=== PATIENT | female | born 1970 | race Asian ===

== ENCOUNTER 2019-08-28 23:03 | Inpatient (IN) | payer OTHER, SELFPAY ==
[2019-08-28 23:19] VITALS: BP 103/65; PULSE 105; RESP 18; TEMP 38.2; O2SAT 98
[2019-08-29] VITALS (25 sets, daily range): BP systolic 86–113; BP diastolic 45–72; PULSE 62–86; RESP 14–24; TEMP 36.1–38.4; O2SAT 93–100; BMI 17.6
[2019-08-29 00:35] LABS: Add Manual Diff / Slide Review NO; Basophils Absolute Auto 0 /uL (0-100); Basophils Percent Auto 0.2 % (0-2); Eosinophils Absolute Auto 0 /uL (0-450); Eosinophils Percent Auto 0.2 % (2-4); Hematocrit 39.3 % (36-46); Hemoglobin 13.6 g/dL (12.0-16.0); Lymphocytes Absolute Auto 1500 /uL (1100-4500); Lymphocytes Percent Auto 14.8 % (25-40); Mean Corpuscular HGB Conc 34.6 % (30-36); Mean Corpuscular Hemoglobin 32.6 PG (26-34); Monocytes Absolute Auto 1300 /uL (0-900); Monocytes Percent Auto 12.3 % (3-14); Neutrophils Absolute Auto 7400 /uL (1500-7000); Neutrophils Percent Auto 72.5 % (50-75); Platelet Count 317 X10^3/uL (150-400); Red Blood Cell Count 4.18 X10^6/uL (4.0-5.2); White Blood Cell Count 10.2 X10^3/uL (4.5-11.0)
[2019-08-29 00:36] LABS: INR 1.1 (0.9-1.3); Prothrombin Time 12.5 SECONDS (10.1-12.7)
[2019-08-29 00:38] LABS: PTT Partial Thromboplastin Tim 33 SECONDS (26.4-36.2)
--- NOTE | 2019-08-29 01:05 | ED.DENTAL ---
HPI - Dental/Oral General Chief complaint: Dental/Oral Stated complaint: left facial swelling tooth problem Time Seen by Provider: 08/28/19 23:05 Source: patient Mode of arrival: Ambulatory Limitations: no limitations History of Present Illness HPI Narrative: 49-year-old female smoker with poor dental history presents with a few days of rapidly worsening left-sided facial pain and swelling which now involves her anterior neck. She is scheduled to see a dentist on Saturday. She has no difficulty breathing and is managing her secretions fine. She does state that it is hard to swallow so her appetite has been decreased. She has had fever and feels like her heart is racing. She feels a bit dizzy. She is otherwise healthy and free of complaint Related Data Allergies Allergy/AdvReac Type Severity Reaction Status Date / Time No Known Drug Allergies Allergy Verified 08/29/19 03:24 Review of Systems Constitutional Constitutional: Denies chills, Denies fatigue, Denies fever(s), Denies frequent falls, Denies lethargy and Denies weakness Eyes Eyes: Denies change in vision, Denies eye discharge, Denies irritation and Denies loss of vision ENT Ears, Nose, Mouth, and Throat: Denies change in voice, Denies dizziness, Reports neck mass, Reports neck pain, Denies sore throat and Denies throat swelling Cardiovascular Cardiovascular: Denies chest pain, Denies irregular heart rhythm, Denies lightheadedness, Denies palpitations, Denies dyspnea, Denies dyspnea on exertion and Denies orthopnea Respiratory Respiratory: Denies cough, Denies dyspnea, Denies dyspnea on exertion and Denies wheezing Gastrointestinal Gastrointestinal: Denies abdominal pain, Denies change in bowel habits, Denies diarrhea, Denies nausea and Denies vomiting Genitourinary Genitourinary: Denies hematuria, Denies flank pain, Denies urinary incontinence and Denies urinary urgency Musculoskeletal Musculoskeletal: Denies back pain, Denies muscle weakness, Reports neck pain, Denies numbness and Denies tingling Integumentary/Breasts Skin/Breast: Denies pruritus, Reports erythema, Denies rash, Reports skin pain and Denies wounds Neurologic Neurologic: Denies behavioral changes, Denies confusion, Denies dizziness, Denies frequent falls, Denies loss of vision, Denies numbness, Denies tingling and Denies weakness Psychiatric Psychiatric: Denies anxiety, Denies behavioral changes, Denies confusion, Denies depression, Denies homicidal ideation and Denies suicidal ideation Endocrine Endocrine: Denies fatigue, Denies flushing and Denies palpitations Hematologic/Lymphatic Hematologic/Lymphatic: Denies easy bruising Allergic/Immunologic Allergic/Immunologic: Denies urticaria, Denies throat swelling and Denies wheezing PFSH Social History Smoking Status: Current every day smoker Social History Smoking Status: Current every day smoker Exam Narrative Exam Narrative: GENERAL: [49] year old patient appears stated age. Well-nourished, well-developed patient, in mild distress. Patient managing her airway and secretions without difficulty HEAD: Atraumatic. Normocephalic. EYES: Pupils equal round and reactive. Extraocular motions intact. No scleral icterus. No injection or drainage. ENT: Nose without bleeding, purulent drainage. Poor dentition throughout, multiple dental caries, no obvious intraoral abscess or drainage NECK: Left anterior neck and mandible are notably red, swollen and tender. CARDIOVASCULAR: Regular rate and rhythm without murmurs, gallops, or rubs. RESPIRATORY: Clear to auscultation. Breath sounds equal bilaterally. No wheezes, rales, or rhonchi. GASTROINTESTINAL: Abdomen soft, non-tender, nondistended. EXTREMITIES: No edema or joint tenderness. BACK: Nontender without deformity or crepitance. No flank tenderness. NEURO: AOx3. SKIN: No rash or erythema of visible areas other than that which is stated above Initial Vital Signs Initial Vital Signs: Vital Signs Temperature 100.8 F H 08/28/19 23:19 Pulse Rate 105 H 08/28/19 23:19 Respiratory Rate 18 08/28/19 23:19 Blood Pressure 103/65 08/28/19 23:19 Pulse Oximetry 98 08/28/19 23:19 Course Orders Ordered: ED Orders 08/29/19 00:01 Complete Blood Count AUTO DIFF Stat Comprehensive Metabolic Panel Stat Lactate (Lactic Acid) Stat Lipase Stat Partial Thromboplastin Time Stat Procalcitonin Stat Prothrombin Time INR Stat 08/29/19 00:40 Blood Culture Stat 08/29/19 01:37 CT soft tissue neck w con Stat Ondansetron HCl (Zofran) 4 mg IV Q4HR PRN PRN Reason: Nausea And Vomiting Last Admin: 08/29/19 01:50 Dose: 4 mg Documented by: ARLEEN Discontinued Medications Dexamethasone (Decadron) 10 mg IV NOW ONE Stop: 08/29/19 01:38 Last Admin: 08/29/19 01:51 Dose: 10 mg Documented by: ARLEEN Sodium Chloride (Normal Saline 0.9%) 1,000 mls @ 1,000 mls/hr IV BOLUS ONE Stop: 08/29/19 01:17 Last Infusion: 08/29/19 03:08 Dose: 0 mls/hr Documented by: Admin: 08/29/19 01:50 Dose: 1,000 mls/hr Documented by: ARLEEN Sodium Chloride (Normal Saline 0.9%) 1,000 mls @ 1,000 mls/hr IV BOLUS ONE Stop: 08/29/19 02:36 Clindamycin Phosphate (Cleocin) 600 mg in 50 mls @ 50 mls/hr IV NOW ONE Stop: 08/29/19 02:37 Last Infusion: 08/29/19 02:57 Dose: 0 mls/hr Documented by: Admin: 08/29/19 02:00 Dose: 50 mls/hr Documented by: ARLEEN Ketorolac Tromethamine (Toradol) 15 mg IV NOW ONE Stop: 08/29/19 01:38 Last Admin: 08/29/19 01:50 Dose: 15 mg Documented by: ARLEEN Reevaluation(s) Reevaluation #1: Patient is feeling somewhat better with the above-stated therapies Consultations Consultation #1: Initial call to ENT, they state they are happy to address the abscess but recommends transfer to a facility with the ability to care for her dental problems as well as this is the likely source of her infection Consultation #2: call to Dr. Newell, he is happy to accept patient on his service. Will be in in a few hours with likely OR time. Keep NPO Vital Signs Vital signs: Vital Signs - 8 hr 08/28/19 23:19 08/29/19 00:00 08/29/19 01:30 Temperature 100.8 F H 101.1 F H Pulse Rate 105 H 76 80 Respiratory Rate 18 20 20 Blood Pressure 103/65 Blood Pressure [Left Arm] 105/68 108/66 Pulse Oximetry 98 97 98 08/29/19 03:07 Temperature 99 F Pulse Rate 70 Respiratory Rate 18 Blood Pressure Blood Pressure [Left Arm] 102/65 Pulse Oximetry 98 MDM - Dental/Oral Lab Data Result diagrams: 08/29/19 00:01 08/29/19 00:01 Labs: Lab Results 08/29/19 08/29/19 08/29/19 Range/Units 00:01 00:01 00:01 WBC 10.2 (4.5-11.0) X10^3/uL RBC 4.18 (4.0-5.2) X10^6/uL Hgb 13.6 (12.0-16.0) g/dL Hct 39.3 (36-46) % MCV 94.0 (80-100) fL MCH 32.6 (26-34) PG MCHC 34.6 (30-36) % RDW 13.0 (11.6-14.8) % Plt Count 317 (150-400) X10^3/uL Neut % (Auto) 72.5 (50-75) % Lymph % (Auto) 14.8 L (25-40) % [place] % (Auto) 12.3 (3-14) % Eos % (Auto) 0.2 L (2-4) % Baso % (Auto) 0.2 (0-2) % Neut # (Auto) 7400 H (1849-0308) /uL Lymph # (Auto) 1500 (2586-3827) /uL [place] # (Auto) 1300 H (0-900) /uL Eos # (Auto) 0 (0-450) /uL Baso # (Auto) 0 (0-100) /uL PT 12.5 (10.1-12.7) SECONDS INR 1.1 (0.9-1.3) APTT 33 (26.4-36.2) SECONDS Sodium (137-145) mmol/L Potassium (3.4-5.1) mmol/L Chloride (98-107) mmol/L Carbon Dioxide (22-32) mmol/L BUN (7-17) mg/dL Creatinine (0.52-1.04) mg/dL Estimated GFR (>60) mL/min BUN/Creatinine Ratio (6-22) Glucose (70-100) mg/dL Lactate (0.7-2.1) mmol/L Calcium (8.4-10.2) mg/dL Total Bilirubin (0.2-1.3) mg/dL AST (14-36) IU/L ALT (9-52) IU/L Alkaline Phosphatase (38-126) U/L Total Protein (6.3-8.2) g/dL Albumin (3.5-5.0) g/dL Globulin (1.7-4.1) g/dL Albumin/Globulin Ratio (1.0-2.8) Lipase (23-300) U/L Procalcitonin 0.20 (<0.5) ng/mL 08/29/19 08/29/19 Range/Units 00:01 00:01 WBC (4.5-11.0) X10^3/uL RBC (4.0-5.2) X10^6/uL Hgb (12.0-16.0) g/dL Hct (36-46) % MCV (80-100) fL MCH (26-34) PG MCHC (30-36) % RDW (11.6-14.8) % Plt Count (150-400) X10^3/uL Neut % (Auto) (50-75) % Lymph % (Auto) (25-40) % [place] % (Auto) (3-14) % Eos % (Auto) (2-4) % Baso % (Auto) (0-2) % Neut # (Auto) (7108-8174) /uL Lymph # (Auto) (1710-7796) /uL [place] # (Auto) (0-900) /uL Eos # (Auto) (0-450) /uL Baso # (Auto) (0-100) /uL PT (10.1-12.7) SECONDS INR (0.9-1.3) APTT (26.4-36.2) SECONDS Sodium 136 L (137-145) mmol/L Potassium 3.4 (3.4-5.1) mmol/L Chloride 96 L (98-107) mmol/L Carbon Dioxide 30 (22-32) mmol/L BUN 8 (7-17) mg/dL Creatinine 0.60 (0.52-1.04) mg/dL Estimated GFR > 60.0 (>60) mL/min BUN/Creatinine Ratio 13.3 (6-22) Glucose 130 H (70-100) mg/dL Lactate 0.6 L (0.7-2.1) mmol/L Calcium 9.1 (8.4-10.2) mg/dL Total Bilirubin 0.6 (0.2-1.3) mg/dL AST 17 (14-36) IU/L ALT 9 (9-52) IU/L Alkaline Phosphatase 71 (38-126) U/L Total Protein 7.6 (6.3-8.2) g/dL Albumin 4.0 (3.5-5.0) g/dL Globulin 3.6 (1.7-4.1) g/dL Albumin/Globulin Ratio 1.1 (1.0-2.8) Lipase 26 (23-300) U/L Procalcitonin (<0.5) ng/mL Discharge Plan Departure Admit Date/Time: 08/29/19 03:37 Admit Provider: Kirill Newell
--- NOTE | 2019-08-29 01:37 | DI.CT.S_ITS ---
PROCEDURE: CT SOFT TISSUE NECK W CON INDICATIONS: large swollen, tender mass anterior neck TECHNIQUE: After the administration of intravenous contrast, 3.0 mm axial sections acquired from the sella to the aortic arch. Additional oblique axial 3.0 mm sections acquired through the pharynx. 3 mm thick coronal and sagittal reformats were generated. For radiation dose reduction, the following was used: automated exposure control. COMPARISON: None. FINDINGS: Image quality: Excellent. Lymph nodes: There are a few enhancing mild prominent left cervical lymph nodes including a level II node measuring up to 0.8 cm in short axis. A few prominent subcentimeter submandibular lymph nodes are also noted. Findings are likely reactive. Vessels: Visualized vasculature appears patent. Neck spaces: There is asymmetric soft tissue swelling and subcutaneous edema involving the left oral cavity, and left aviation technical systems specialist space, and left submandibular region. Within this region, there is a lobulated multiloculated peripheral enhancing fluid collection measuring approximately 2.8 x 2.8 since in maximum transverse dimension and 3.6 cm in craniocaudal extent. This tracks along the posterior left mandible with a small cortical erosion demonstrated medially adjacent to the root of the left 2nd mandibular molar. There is a lucency around the root of the 2nd molar as well as erosive changes of the tooth. The constellation of findings are compatible with a periosteal abscess along the mandible likely secondary to an odontogenic cavity and infection of the root of the 2nd molar. There is asymmetric soft tissue swelling of the left base of tongue and mild narrowing of the left oropharynx. The nasopharynx, and pharynx demonstrate no mucosal lesions. The vocal cords, false vocal cords, pyriform sinuses, epiglottis, and vallecula appear to normal limits. Glands: The parotid and submandibular glands appear normal. Thyroid gland demonstrates no discrete nodules. Miscellaneous: Visualized brain and orbits appear normal. The visualized lung apices demonstrate mild subpleural scarring in the right upper lobe. Bones: No suspicious bony lesions. Visualized sinuses and mastoids appear unremarkable. IMPRESSION: 1. Multiloculated periosteal abscess tracking along the posterior left mandible with an associated erosion of the medial mandible. Given the associated erosive changes of the tooth and lucency at the base of the left 2nd mandibular molar, the findings are likely odontogenic in origin secondary to a cavity with an infection at the root of the 2nd molar. 2. Associated left-sided soft tissue swelling involving the oral cavity, submandibular region, and aviation technical systems specialist space are suggestive of cellulitis. 3. Mildly prominent sub-centimeter left cervical lymph nodes are likely reactive. Dictated by: Akira Torres M.D. on 08/29/2019 at 7:06 Approved by: Akira Torres M.D. on 08/29/2019 at 7:23
[2019-08-29] MEDS: ONDANSETRON 4 MG/2 ML INJ IV (01:50)
[2019-08-29] MEDS: SODIUM CHLORIDE 0.9% 1,000 ML 1000 ML IV ×2 (01:50→04:08)
[2019-08-29] MEDS: KETOROLAC 60 MG/2 ML VIAL 15 MG IV (01:50)
[2019-08-29] MEDS: DEXAMETHASONE 10 MG/ML VIAL IV (01:51)
[2019-08-29 01:52] LABS: Lactate (Lactic Acid) 0.6 mmol/L (0.7-2.1)
[2019-08-29 01:53] LABS: Alanine Aminotransferase 9 IU/L (9-52); Albumin Globulin Ratio 1.1 (1.0-2.8); Alkaline Phosphatase 71 U/L (38-126); Aspartate Aminotransferase 17 IU/L (14-36); BUN Creatinine Ratio 13.3 (6-22); Bilirubin Total 0.6 mg/dL (0.2-1.3); Blood Urea Nitrogen 8 mg/dL (7-17); Calcium 9.1 mg/dL (8.4-10.2); Carbon Dioxide 30 mmol/L (22-32); Chloride 96 mmol/L (98-107); Estimated Glomerular Filt Rate > 60.0 mL/min (>60); Globulin 3.6 g/dL (1.7-4.1); Glucose 130 mg/dL (70-100); HEMOLYSIS < 15 (0-50); Lipase 26 U/L (23-300); Potassium 3.4 mmol/L (3.4-5.1); Sodium 136 mmol/L (137-145); Total Protein 7.6 g/dL (6.3-8.2)
[2019-08-29] MEDS: CLINDAMYCIN 600 MG/50 ML PIGGYBACK 50 MG IV ×4 (02:00→22:44)
--- NOTE | 2019-08-29 04:44 | PC.NURSE ---
HER IV FLUID RATE IS 125 ML PER HR. PER [address]. ANGELES VERBAL ORDER.100 ML NS INFUSED,THE REST WENT TO [facility] WITH HER.
[2019-08-29] MEDS: SODIUM CHLORIDE 0.9% 1,000 ML 125 ML IV (04:45)
--- NOTE | 2019-08-29 05:26 | PC.ADMIT ---
[address] Admission Note: The patient,Bruna Montiel,49 y/o, was given written information regarding hospital policies, unit procedures and contact persons. Patient's smoking status: Current every day smoker. Vital Signs - 8 hr 08/28/19 23:19 08/29/19 00:00 08/29/19 01:30 Temperature 100.8 F H 101.1 F H Pulse Rate 105 H 76 80 Respiratory Rate 18 20 20 Blood Pressure 103/65 Blood Pressure [Left Arm] 105/68 108/66 Pulse Oximetry 98 97 98 08/29/19 03:07 08/29/19 04:45 Temperature 99 F 98.2 F Pulse Rate 70 65 Respiratory Rate 18 24 Blood Pressure 93/57 L Blood Pressure [Left Arm] 102/65 Pulse Oximetry 98 98 Pt brought over via WC, accompanied by this RN to room 106. Pt in NAD. VSS, afebrile. Denies pain currently. Airway patent, managing oral secretions without difficulty. Notable swelling to left side of face d/t tooth abscess. Oral surgeon Dr. Newell to see today. IVF infusing per orders. Oriented to room, call light and plan of care. Pt verbalized understanding. Pt's primary language is [place] but she understands Polish and is able to communicate her needs. She declines offered tyre builder services.
--- NOTE | 2019-08-29 08:04 | PM.HP.1 ---
History of Present Illness History of Present Illness Chief complaint: lower left tooth pain and neck swelling Patient History Social History household members: spouse Smoking Status: Current every day smoker alcohol intake: current Family & Social History Social History: household members spouse Prior Living Arrangements House Safety & Behavioral: Feels Safe in Current Yes Environment Been Physically Hurt or No Threatened By a Person Suicidal Ideation Description None Tobacco & Substance use: Tobacco type cigarettes Smoking Status Current every day smoker alcohol intake current alcohol intake frequency holiday/special occasion Substance Use Type does not use Meds Home Medications and Allergies Home Medications Medication Instructions Recorded Confirmed Type No Known Home Medications 08/29/19 08/29/19 History Allergies Allergy/AdvReac Type Severity Reaction Status Date / Time No Known Drug Allergies Allergy Verified 08/29/19 03:24 Review of Systems Review of Systems ROS Unobtainable: All systems reviewed & are unremarkable except as noted in HPI and below ENT Ears, Nose, Mouth, and Throat: Yes difficulty swallowing, Yes facial pain, Yes mouth pain, Yes neck pain and Yes pain with swallowing Gastrointestinal Gastrointestinal: Reports dysphagia and Reports odynophagia Musculoskeletal Musculoskeletal: Reports neck pain Exam Vital Signs (past 8 hours): - 08/29/19 01:30 08/29/19 03:07 08/29/19 04:45 Temperature 99 F 98.2 F Pulse Rate 80 70 65 Respiratory Rate 20 18 24 Blood Pressure 93/57 L Blood Pressure [Left Arm] 108/66 102/65 Pulse Oximetry 98 98 98 08/29/19 05:33 08/29/19 06:55 08/29/19 07:34 Temperature 97.3 F L Pulse Rate 65 63 Respiratory Rate 20 14 Blood Pressure 86/50 L 86/50 L Blood Pressure [Left Arm] Pulse Oximetry 97 97 97 08/29/19 07:59 Temperature Pulse Rate Respiratory Rate Blood Pressure 101/60 Blood Pressure [Left Arm] Pulse Oximetry Oxygen Delivery Method Room Air HENRI Face and sinus: other (swelling of the left cheek) Mouth: lip normal, moist mucous membranes, malodorous breath, trismus and other (floor of the mouth is tender) Teeth and gingiva: caries and other (tenderness in the posterior teeth in the left mandible and tooth #18.) Other: Limited visibility in the posterior pharynx Resp Auscultation: clear to auscultation bilaterally Cardio Rhythm: regular rhythm Pulses: normal peripheral pulses GI Auscultation: normal bowel sounds Psych Appearance: grossly normal Mental Status: mental status grossly normal Speech and Movement: speech and movement normal Objective Labs Result Diagrams: 08/29/19 00:01 08/29/19 00:01 Labs: Laboratory Results - last 24 hr 08/29/19 08/29/19 08/29/19 00:01 00:01 00:01 WBC 10.2 RBC 4.18 Hgb 13.6 Hct 39.3 MCV 94.0 MCH 32.6 MCHC 34.6 RDW 13.0 Plt Count 317 Neut % (Auto) 72.5 Lymph % (Auto) 14.8 L [place] % (Auto) 12.3 Eos % (Auto) 0.2 L Baso % (Auto) 0.2 Neut # (Auto) 7400 H Lymph # (Auto) 1500 [place] # (Auto) 1300 H Eos # (Auto) 0 Baso # (Auto) 0 PT 12.5 INR 1.1 APTT 33 Sodium Potassium Chloride Carbon Dioxide BUN Creatinine Estimated GFR BUN/Creatinine Ratio Glucose Lactate Calcium Total Bilirubin AST ALT Alkaline Phosphatase Total Protein Albumin Globulin Albumin/Globulin Ratio Lipase Procalcitonin 0.20 08/29/19 08/29/19 00:01 00:01 WBC RBC Hgb Hct MCV MCH MCHC RDW Plt Count Neut % (Auto) Lymph % (Auto) [place] % (Auto) Eos % (Auto) Baso % (Auto) Neut # (Auto) Lymph # (Auto) [place] # (Auto) Eos # (Auto) Baso # (Auto) PT INR APTT Sodium 136 L Potassium 3.4 Chloride 96 L Carbon Dioxide 30 BUN 8 Creatinine 0.60 Estimated GFR > 60.0 BUN/Creatinine Ratio 13.3 Glucose 130 H Lactate 0.6 L Calcium 9.1 Total Bilirubin 0.6 AST 17 ALT 9 Alkaline Phosphatase 71 Total Protein 7.6 Albumin 4.0 Globulin 3.6 Albumin/Globulin Ratio 1.1 Lipase 26 Procalcitonin Assessment & Plan Assessment & Plan narrative: Left buccal space and submandibular abscess of odontogenic origin. I recommend extraction of tooth and extraoral incision and drainage due to fluid collection present in the submandibular region. Patient will require intravenous antibiotics and hospitalization until resolution of the infection. Time Spent With Patient Time with patient: 25 - 35 minutes Quality VTE Deep Vein Thrombosis/Pulmonary Embolism Present on Admission: No
--- NOTE | 2019-08-29 08:38 | PM.PREOP ---
Pre-operative Note Interval Note History & Physical reviewed/Exam performed by Physician: Yes Changes to H&P: No ASA Class (for procedural sedation): II
--- NOTE | 2019-08-29 09:02 | PC.NURSE ---
Addendum entered by Trudi Harper R.N. 08/29/19 12:09: Received pt from PACU at 1125, report received from Daphne RUGGIERO. Pt is awake and oriented. Gauze in mouth with small amount bloody drainage, gauze wrap bandage in place to neck with moderate amount bloody drainage, stitches underneath intact and two tony drains visible. Oxygen sats 96-98% on RA, VSS. Taking in clear liquids without issue. Dilaudid 0.5 mg given for report of left jaw pain at 7. Call light within reach. Original Note: Day Shift Note Facial swelling noted to left side of face and jaw. Erythemic, warm and hard to touch. Pt reports pain 2/10 but declines pain medications at this time. NPO. at bedside. RA with oxygen sats 98%. Pt to OR for surgery with Dr. Newell at 0900, report given to Daphne RUGGIERO.
--- NOTE | 2019-08-29 09:11 | CM.DANOTE ---
DCP: Case received, EMR reviewed and met with patient. Introduced self and role. Was able to meet with patient and and retrieve some baseline health history. , Negro was at bedside, as well. DCP assessment/template completed with information currently available. Patient is a 49 year old female who admitted early this morning to the care of the hospitalist team. Provider: None currently Payer: No health insurance, will be meeting with admission counselors today. Patient came to the hospital secondary to mouth pain, and swelling. Patient had been complaining of left facial pain. Patient diagnosed with infection, and will be having surgery conducted by oral surgeon, Dr. Newell. She has history of poor dental hygiene. Met with patient in her room, and . Patient speaks some [place], but difficult to understand. confirmed that they have no health insurance, but he applied for theScore, since he is a disabled vet. She has no provider as well. Let him know that the admission counselors will be talking to him and patient regarding insurance options for now. She will also need to follow up with Dr. Newell after surgery. P: DCP to continue to follow closely, and be available for any needs or resources at discharge. Anticipate that patient will be here another day, since she is having surgery today. Mónica Sawyer RN/Junior Account Manager
--- NOTE | 2019-08-29 09:29 | SUR.OPER ---
Supine on padded OR bed, head on pillow, arms padded and tucked at side, legs uncrossed, safety belt at thigh, tape over blanket over lower legs .
[2019-08-29] MEDS: BUPIVACAINE 0.5% W/ EPI (PF) VIAL 30 ML INJ (09:44)
--- NOTE | 2019-08-29 10:34 | P.OP_ITS ---
Operative Date/Time/Diagnoses Date of procedure: 08/29/19 Time of procedure: 09:00 Pre-op diagnosis: Left submandibular space abscess Infected teeth Cellulitis Post-op diagnosis: same Procedure & Clinicians Procedure: Extraction of teeth 17 and 18 Incision and drainage of left submandibular space abscess and left buccal space abscess Indications: Patient with acute onset swelling from painful and infected tooth Surgeon: Kirill Newell Click Yes if Unassisted: Yes Anesthesia Type: General Operative Notes Findings: Purulent exudate from the left neck Decayed teeth 17 and 18 Closure Type: not applicable Specimen(s): other (Culture tubes aerobic and anaerobic of the left submandibular space) Estimated Blood Loss (mL): 10 Procedure in detail: Patient was prepared for surgery and brought to operating theater #4 at [facility]. The patient was prepped a Post-operative Condition: stable Disposition: PACU
[2019-08-29] MEDS: fentaNYL 100 MCG/2 ML INJ 50 MCG IV (10:53)
--- NOTE | 2019-08-29 11:01 | PM.OP.1 ---
Operative Date/Time/Diagnoses Date of procedure: 08/29/19 Time of procedure: 09:02 Pre-op diagnosis: Left submandibular space abscess and decayed teeth Post-op diagnosis: same Procedure & Clinicians Procedure: Extraction of teeth 17 and 18 Incision and drainage of left submandibular space and left buccal space Same procedure as scheduled: Yes Indications: Decayed teeth and swelling in the left submandibular space with associated cellulitis Surgeon: Kirill Newell Click Yes if Unassisted: No Anesthesia Type: General Operative Notes Findings: Purulent exudate approximately 20 ml's from the left submandibular space Decayed teeth 17 and 18 Closure Type: not applicable Specimen(s): other (Wound cultures from the left submandibular space.) Estimated Blood Loss (mL): 10 Procedure in detail: Patient was brought to operating theatre #4 at [facility]. The patient was prepped and draped in a standard fashion for an transportation technician procedure. Attention was directed at marking the posterior border of the mandible and the inferior border of the mandible with a surgical pen as the anatomy was distorted due to the swelling that was present. A #15 blade was then used to make an incision two centimeters below the inferior border of the mandible. The incision was carried to the platysma muscle. Using a curved hemostat, blunt dissection was then performed into the left sumbandibular space. Purulent exudate was obtained and two wound cultures were obtained. After adequate drainage was obtained from the extraoral wound, attention was directed intraorally. A bite block was used to keep the mouth open. Bupivicaine 0.5% with 1:[id number] epinephrine was administered as an inferior alveolar nerve block and infiltration into the surgical area. A #15 blade was used to make a sulcular incision around teeth 18 and 17. A #9 mucoperiosteal elevator was then used to reflect the tissue. The teeth were luxated, but due to the decay there was limited tooth structure to grasp. A surgical bur on an electric handpiece was then used to perform a buccal trough around the teeth. The teeth were sectioned and removed. The surgical bur was used with copious irrigation. The sockets were curretted out and a large amount of granulation tissue was removed from the socket of #18. The wound was rinsed out well. Further dissection on the lingual of the mandible and ramus of the mandible did not reveal any further purulent exudate. Attention was then directed at the extraoral wound. Blunt finger dissection was performed in the wound to the inferior border of the mandible and medial to the mandible. Further necrotic tissue was removed. Using a red rubber catheter the wound was thoroughly irrigated with normal saline. Two 1/4 inch tony drains were placed into the wound. One posteriorly and one anteriorly and secured to the skin with 3-0 silk suture. A 3-0 cg suture was used to reapproximate the oral soft tissues. The oral cavity was suctioned dry. Fluff dressings were placed over the extraoral wound and wrapped with a kerlix dressing. Complications: none Post-operative Condition: stable Disposition: PACU Plan for aftercare: Patient to have Intravenous antibiotics and hospital care for a minimum of two days.
[2019-08-29] MEDS: HYDROMORPHONE 1 MG INJ 0.5 MG IV (11:40)
--- NOTE | 2019-08-29 11:57 | SUR.PHASEI ---
Post op Phase 1 note: patient arrived to PACU via inpatient bed. Drowsy and easily arousable by voice. Dressing around drain site and gauze in mouth with small amount of bloody drainage noted. VSS, O2 sat on RA WNL. Medicated with Fentanyl with effective pain relief. Stable for transfer to ICU room 106 for post op care. Telphone report called to Fidelia Eddy RN.
[2019-08-29 13:10] LABS: Add Manual Diff / Slide Review NO; Basophils Absolute Auto 100 /uL (0-100); Basophils Percent Auto 0.5 % (0-2); Eosinophils Absolute Auto 0 /uL (0-450); Hematocrit 38.5 % (36-46); Hemoglobin 12.8 g/dL (12.0-16.0); Lymphocytes Absolute Auto 500 /uL (1100-4500); Lymphocytes Percent Auto 4.2 % (25-40); Mean Corpuscular HGB Conc 33.3 % (30-36); Mean Corpuscular Hemoglobin 31.8 PG (26-34); Mean Corpuscular Volume 95.6 fL (80-100); Monocytes Absolute Auto 300 /uL (0-900); Monocytes Percent Auto 2.3 % (3-14); Neutrophils Absolute Auto 10400 /uL (1500-7000); Platelet Count 307 X10^3/uL (150-400); Red Blood Cell Count 4.02 X10^6/uL (4.0-5.2); Red Cell Distribution Width 13.3 % (11.6-14.8); White Blood Cell Count 11.2 X10^3/uL (4.5-11.0)
[2019-08-29] MEDS: SODIUM CHLORIDE 0.9% 1,000 ML 100 ML IV (16:33)
--- NOTE | 2019-08-29 17:15 | PM.PNPO.1 ---
Subjective Subjective Date Patient Seen: 08/29/19 Time Patient Seen: 17:16 Interval history: Patient status post incision and drainage of abscess left submandibular region and extraction of teeth. Exam Vital Signs (past 8 hours): - 08/29/19 10:28 08/29/19 10:31 08/29/19 10:35 Temperature 97.0 F L Pulse Rate 86 86 80 Respiratory Rate 22 22 19 Blood Pressure 94/58 L 93/65 100/56 L Pulse Oximetry 98 98 98 08/29/19 10:40 08/29/19 10:55 08/29/19 11:05 Temperature 98.4 F 97.9 F 97.9 F Pulse Rate 75 70 69 Respiratory Rate 22 21 20 Blood Pressure 99/59 L 97/57 L 113/72 Pulse Oximetry 98 99 97 08/29/19 11:15 08/29/19 11:30 08/29/19 12:00 Temperature 97.8 F 97.8 F 98.2 F Pulse Rate 71 66 75 Respiratory Rate 18 14 18 Blood Pressure 112/71 101/69 103/45 L Pulse Oximetry 98 95 100 08/29/19 12:30 08/29/19 13:34 08/29/19 14:30 Temperature Pulse Rate 74 69 62 Respiratory Rate 18 14 16 Blood Pressure 100/64 95/53 L 92/54 L Pulse Oximetry 100 98 96 08/29/19 15:51 Temperature 98.7 F Pulse Rate 62 Respiratory Rate 19 Blood Pressure 102/60 Pulse Oximetry 98 Oxygen Delivery Method Room Air Oxygen Flow Rate 0 HENMT Other: mouth opening is limited, no active intraoral bleeding noted. Neck Other: Neck still firm in the submandibular region. Drains in place with serosanguinous drainage. Trachea midline and no tenderness or erythema below the larynx. Objective Labs Result Diagrams: 08/29/19 12:59 08/29/19 00:01 Labs: Laboratory Results - last 24 hr 08/29/19 08/29/19 08/29/19 00:01 00:01 00:01 WBC 10.2 RBC 4.18 Hgb 13.6 Hct 39.3 MCV 94.0 MCH 32.6 MCHC 34.6 RDW 13.0 Plt Count 317 Neut % (Auto) 72.5 Lymph % (Auto) 14.8 L [place] % (Auto) 12.3 Eos % (Auto) 0.2 L Baso % (Auto) 0.2 Neut # (Auto) 7400 H Lymph # (Auto) 1500 [place] # (Auto) 1300 H Eos # (Auto) 0 Baso # (Auto) 0 PT 12.5 INR 1.1 APTT 33 Sodium Potassium Chloride Carbon Dioxide BUN Creatinine Estimated GFR BUN/Creatinine Ratio Glucose Lactate Calcium Total Bilirubin AST ALT Alkaline Phosphatase Total Protein Albumin Globulin Albumin/Globulin Ratio Lipase Procalcitonin 0.20 Nasal Screen MRSA (PCR) 08/29/19 08/29/19 08/29/19 00:01 00:01 05:00 WBC RBC Hgb Hct MCV MCH MCHC RDW Plt Count Neut % (Auto) Lymph % (Auto) [place] % (Auto) Eos % (Auto) Baso % (Auto) Neut # (Auto) Lymph # (Auto) [place] # (Auto) Eos # (Auto) Baso # (Auto) PT INR APTT Sodium 136 L Potassium 3.4 Chloride 96 L Carbon Dioxide 30 BUN 8 Creatinine 0.60 Estimated GFR > 60.0 BUN/Creatinine Ratio 13.3 Glucose 130 H Lactate 0.6 L Calcium 9.1 Total Bilirubin 0.6 AST 17 ALT 9 Alkaline Phosphatase 71 Total Protein 7.6 Albumin 4.0 Globulin 3.6 Albumin/Globulin Ratio 1.1 Lipase 26 Procalcitonin Nasal Screen MRSA (PCR) Negative for mrsa 08/29/19 12:59 WBC 11.2 H RBC 4.02 Hgb 12.8 Hct 38.5 MCV 95.6 MCH 31.8 MCHC 33.3 RDW 13.3 Plt Count 307 Neut % (Auto) 93.0 H D Lymph % (Auto) 4.2 L [place] % (Auto) 2.3 L Eos % (Auto) 0.0 L Baso % (Auto) 0.5 Neut # (Auto) 55039 H Lymph # (Auto) 500 L [place] # (Auto) 300 Eos # (Auto) 0 Baso # (Auto) 100 PT INR APTT Sodium Potassium Chloride Carbon Dioxide BUN Creatinine Estimated GFR BUN/Creatinine Ratio Glucose Lactate Calcium Total Bilirubin AST ALT Alkaline Phosphatase Total Protein Albumin Globulin Albumin/Globulin Ratio Lipase Procalcitonin Nasal Screen MRSA (PCR) Assessment & Plan Post-op Postoperative Procedures: Procedures Operation Date: 08/29/19 08:20 Actual Procedures Side Surgeon p Dental Extractions x2 Kirill Newell DMD s Incision and Drainage Wound/Oral left mandibular abscess Kirill Reece, DMD Postoperative status: doing well Postoperative plan: routine post-op care Postoperative plan narrative: Continue IV antibiotics and monitor swelling. Time Spent With Patient Time with patient: less than 15 minutes Quality VTE Deep Vein Thrombosis/Pulmonary Embolism Present on Admission: No
--- NOTE | 2019-08-29 20:46 | PC.NURSE ---
russell note Pt denies pain at this time. Left jaw is swollen and red and warm to touch, with redness extending down neck. 2 small [place] drains sutured in place, draining serosanguinous fluid. Gauze drsg changed.
[2019-08-29] MEDS: DOCUSATE 100 MG CAPSULE PO (21:10)
[2019-08-30] VITALS (9 sets, daily range): BP systolic 94–167; BP diastolic 38–76; PULSE 57–79; RESP 16–20; TEMP 36.8–37.2; O2SAT 94–99
[2019-08-30] MEDS: CLINDAMYCIN 600 MG/50 ML PIGGYBACK 50 MG IV ×4 (04:46→23:02)
[2019-08-30] MEDS: SODIUM CHLORIDE 0.9% 1,000 ML 100 ML IV (04:46)
--- NOTE | 2019-08-30 06:35 | PC.NURSE ---
Patient is A/Ox3, denies pain or nausea. Lt jaw is mildly swollen and erythemic, Abdiaziz drains x2 intact with small serous-sang drainage. VSS, on RA with SpO2 >94%. Independent in room.
[2019-08-30] MEDS: DOCUSATE 100 MG CAPSULE PO ×2 (08:14→20:56)
[2019-08-30] MEDS: HYDROCODONE/ACET 5/325 TABLET 1 TAB PO ×3 (08:14→20:56)
--- NOTE | 2019-08-30 10:09 | PM.PNPO.1 ---
Subjective Subjective Date Patient Seen: 08/30/19 Time Patient Seen: 10:09 Interval history: Patient reports she is doing quite well with much less pain and it is easier to swallow. Exam Vital Signs (past 8 hours): - 08/30/19 03:42 08/30/19 07:28 08/30/19 08:31 Temperature 98.7 F 98.3 F Pulse Rate 66 65 Respiratory Rate 18 18 Blood Pressure 100/60 94/54 L Pulse Oximetry 98 98 98 Oxygen Delivery Method Room Air Oxygen Flow Rate 0 Const General: cooperative and comfortable Orientation: alert, awake and oriented x3 HENMT Head: normal to inspection Nose: nares normal and TMJ nontender Mouth: oral mucosae normal and trismus Teeth and gingiva: fair dentition Throat: posterior oropharynx normal Eyes General: appearance normal, both eyes and all related structures Neck Other: Drains in place in the left neck. Serosanguinous drainage noted. Still firm and tender in the left submandibular area, but erythema is decreased. Trachea is midline and no tenderness at the base of the neck. No crepitus noted. Chest Chest: normal inspection of the chest Cardio Rate: regular rate Rhythm: regular rhythm GI Inspection: normal to inspection Auscultation: normal bowel sounds Skin General: no rashes or lesions noted Objective Labs Result Diagrams: 08/29/19 12:59 08/29/19 00:01 Labs: Laboratory Results - last 24 hr 08/29/19 12:59 WBC 11.2 H RBC 4.02 Hgb 12.8 Hct 38.5 MCV 95.6 MCH 31.8 MCHC 33.3 RDW 13.3 Plt Count 307 Neut % (Auto) 93.0 H D Lymph % (Auto) 4.2 L [place] % (Auto) 2.3 L Eos % (Auto) 0.0 L Baso % (Auto) 0.5 Neut # (Auto) 22699 H Lymph # (Auto) 500 L [place] # (Auto) 300 Eos # (Auto) 0 Baso # (Auto) 100 Assessment & Plan Post-op Postoperative Procedures: Procedures Operation Date: 08/29/19 08:20 Actual Procedures Side Surgeon p Dental Extractions x2 Kirill Newell DMD s Incision and Drainage Wound/Oral left mandibular abscess Kirill Newell DMD Postoperative day: 1 Postoperative status: doing well Postoperative plan: routine post-op care Postoperative plan narrative: Continue IV antibiotics. Time Spent With Patient Time with patient: less than 15 minutes Quality VTE Deep Vein Thrombosis/Pulmonary Embolism Present on Admission: No
--- NOTE | 2019-08-30 11:32 | PC.NURSE ---
Day Shift Note Independent in room. Dressing changed to left jaw. Western drain x2 intact and draining serosanguinous fluid. 4x4 gauze x2 placed over drains and incision and wrapped/secured with kerlix. Erythemic and warm to touch on left jaw, pt reported pain 5/0 and received 1 tab [place] which she reported as effective. Denies any swallowing difficulties, oxygen sats 98% RA.
[2019-08-30] MEDS: SODIUM CHLORIDE 0.9% FLUSH 10 ML IV (23:02)
--- NOTE | 2019-08-31 00:49 | PC.NURSE ---
Ecology Professor Note: 0030: Awake, up to bathroom. Pt is on menses: wipes and supplies given. Abril care by patient. IV in place in lt forearm. Vital signs stable. Dressing around neck has fallen off: wound re-dressed with 4X4s and kirlex roll. Abdiaziz drains intact, and old dressing has moderate amt serosanguinous drainage.
[2019-08-31] MEDS: HYDROCODONE/ACET 5/325 TABLET 1 TAB PO (01:08)
[2019-08-31 04:14] VITALS: BP 134/82; PULSE 61; RESP 18; TEMP 36.7; O2SAT 98
[2019-08-31] MEDS: CLINDAMYCIN 600 MG/50 ML PIGGYBACK 50 MG IV ×2 (04:47→10:00)
[2019-08-31 08:27] VITALS: BP 126/76; PULSE 58; RESP 16; TEMP 36.8; O2SAT 99
[2019-08-31 09:05] VITALS: O2SAT 99
--- NOTE | 2019-08-31 09:06 | PM.PNPO.1 ---
Subjective Subjective Date Patient Seen: 08/31/19 Time Patient Seen: 09:06 Interval history: Patient reports she is feeling really good. Exam Vital Signs (past 8 hours): - 08/31/19 04:14 08/31/19 08:27 Temperature 98.0 F 98.2 F Pulse Rate 61 58 L Respiratory Rate 18 16 Blood Pressure 134/82 126/76 Pulse Oximetry 98 99 Oxygen Delivery Method Room Air Oxygen Flow Rate 0 HENMT Head: normal to inspection Mouth: oral mucosae normal and trismus Teeth and gingiva: gingiva normal Throat: posterior oropharynx normal Neck Neck: normal visual inspection and trachea midline Other: Drains in place. Submandibular swelling has decreased. No fluctuant swelling noted. Serosanguinous drainage from tony drains. Chest Chest: normal inspection of the chest Cardio Rate: regular rate Rhythm: regular rhythm Objective Labs Result Diagrams: 08/29/19 12:59 08/29/19 00:01 Assessment & Plan Post-op Postoperative Procedures: Procedures Operation Date: 08/29/19 08:20 Actual Procedures Side Surgeon p Dental Extractions x2 Kirill Newell DMD s Incision and Drainage Wound/Oral left mandibular abscess Kirill Newell DMD Postoperative day: 2 Postoperative status: doing well Postoperative status narrative: Patient improving. Postoperative plan: routine post-op care Postoperative plan narrative: Plan to remove drains today if WBC count continues to be normal. Plan to get new WBC today. Cultures back and Streptococcus sensitive to clindamycin. Time Spent With Patient Time with patient: less than 15 minutes Quality VTE Deep Vein Thrombosis/Pulmonary Embolism Present on Admission: No
[2019-08-31] MEDS: DOCUSATE 100 MG CAPSULE PO (10:00)
[2019-08-31] MEDS: SODIUM CHLORIDE 0.9% FLUSH 10 ML IV (10:00)
--- NOTE | 2019-08-31 10:39 | CM.DPC ---
Addendum entered by Lauryn Ryan LPN 08/31/19 14:48: DC order is now in place. Admission Counselor Gail Lockett did meet earlier with pt, received confirmation from pt that she did have [employer] in past but is currently inactive. Pt asked that she return when her arrives (he gets off work at 1530) as he will know the specifics of their income. Spoke with RN Davis who was aware of this. She also says that pt wished to wait for d/c instructions so that her can be present to hear what will be needed. P: home today when above in place. Original Note: DCP: continued: Case received, EMR reviewed and concerns noted re no current insurance coverage. Pt is [place], newly and works at [employer] in [place]. Per documentation her is a disabled who is looking into [employer] but this may take up to 6 months. [facility] have been unable to see pt yet for further look at options including [employer] but an attempt was made. Have requested update on this from the ACG: sent via [employer] email just now. Pt currently is on IV antibiotics and tony drains are in. Dr. Newell was in earlier and plans for drain removal later if pt's WBCs remains stable. P: follow as needs unfold, ;await clarity re insurance options.
[2019-08-31 12:00] VITALS: BP 121/66; PULSE 52; RESP 20; TEMP 36.7; O2SAT 98
--- NOTE | 2019-08-31 14:22 | P.DS_ITS ---
History of Present Illness History of Present Illness Chief complaint: lower left tooth pain and neck swelling Discharge Providers Provider Date of admission: 08/29/19 03:37 Discharge Date: 08/31/19 Discharge provider: Kirill Newell DMD Summary Hospital Course Discharge Diagnosis: Abscess Left submandibular space Hospital Course: Patient presented to ER on August 28, 2019. She was diagnosed with a left submandibular space abscess of odontogenic origin. She underwent incision and drainage of the abscess along with the involved teeth in the OR at [facility]. She was admitted for intravenous antibiotics. She responded well to the surgical procedure and on postoperative day 2 her White blood cell count normalized and her drains had minimal output. She was eating and she was afebrile. Her drains were removed and she was meeting discharge criteria as pain was also well controlled. Status at Discharge Cognitive/behavioral status at discharge: oriented Functional status at discharge: independent ambulation Overall status at discharge: patient is back to baseline Time Spent with Patient Time spent: Less than 30 minutes Exam Vital Signs (past 8 hours): - 08/31/19 08:27 08/31/19 09:05 08/31/19 12:00 Temperature 98.2 F 98.0 F Pulse Rate 58 L 52 L Respiratory Rate 16 20 Blood Pressure 126/76 121/66 Pulse Oximetry 99 99 98 Oxygen Delivery Method Room Air Oxygen Flow Rate 0 HENMT Head: normal to inspection and normocephalic Nose: external nose normal and nares normal Mouth: oral mucosae normal, tongue normal, salivary ducts normal and oropharynx normal Throat: posterior oropharynx normal Neck Neck: normal visual inspection, full ROM and trachea midline Other: Left submandibular swelling is resolving with limited erythema and no induration. Chest Chest: normal inspection of the chest Resp Auscultation: clear to auscultation bilaterally Cardio Rate: regular rate Rhythm: regular rhythm GI Inspection: normal to inspection Auscultation: normal bowel sounds Skin General: no rashes or lesions noted Hair: normal Nails: normal Neuro Cranial Nerves: CN's II-XI intact bilaterally and tongue midline Cognition: normal cognition Speech: speech normal Motor: muscle tone normal throughout Sensory Exam: no sensory deficits noted Extrem General: normal to inspection and no pedal edema Objective Labs Result Diagrams: 08/31/19 11:10 08/29/19 00:01 Labs: Laboratory Results - last 24 hr 08/31/19 11:10 WBC 7.0 Discharge Plan Discharge Plan Patient Disposition: Home Discharge comment: Patient to be discharged to home with her . Discharge Med Rec/Prescriptions Prescriptions: No Action No Known Home Medications RF: 0 Follow up/Referrals: Kirill Newell DMD [Physician] - 09/04/19 (Please call office to schedule a follow-up appointment.) Provider Discharge Instructions Diet: Diet as Tolerated Activity: Normal activity. Other treatments: Prescription for Clindamycin 300 mg p.o. qid until finished f or seven days and Hydrocodone 5mg/APAP 325 mg take one tablet p.o. every 4-6 hours as needed for pain. Skin/Wound/Dressing Care Report to your healthcare provider any signs of infection, such as:: chills, fever, night sweats, increased pain, unusual drainage and unusual redness Other wound treatment: Change dressing on neck two to three times a day. Okay to shower and allow area to air dry. Visit Report/Discharge Packet Instructions: DI on Tooth Extraction, DI for Incision and Drainage Quality VTE Deep Vein Thrombosis/Pulmonary Embolism Present on Admission: No
--- NOTE | 2019-08-31 14:34 | PC.NURSE ---
DMD at bedside removed sutures and drain. VORB to apply gauze over I&D site and secure with paper tape. Pt is ordered to d/c home today. Pt would like to wait for before receiving d/c education. Removed PIV with cath tip intact.
== END 2019-08-31 16:06 | disposition home or self-care (01) | DRG 138 ==
LOC: ED 23:56 → ICU 08-29 03:38
PROVIDERS: Admitting Provider Dentist Oral and Maxillofacial Surgery; Emergency Provider Emergency Medicine; Visit Provider Dentist Oral and Maxillofacial Surgery
PROC: 0J910ZZ Drainage of Face Subcutaneous Tissue and Fascia, Open Approach (ICD-10-PCS; CPT 41899; principal; 2019-08-29 08:20)
PROC: 0J910ZZ Drainage of Face Subcutaneous Tissue and Fascia, Open Approach (ICD-10-PCS; 2019-08-29 08:20)
DX: K12.2 Cellulitis and abscess of mouth (principal); K02.9 Dental caries, unspecified; F17.210 Nicotine dependence, cigarettes, uncomplicated
CPT/HCPCS: 36415; 70491; 80053; 83605; 83690; 84145; 85025; 85048; 85610; 85730; 87040; 87070; 87075; 87077; 87186; 87205; 87797; 96365; 96375; 99283; 99284; J0330; J1100; J1170; J1885; J2405; J2704; J3010; Q9967

== ENCOUNTER → 2024-12-23 08:35 | Outpatient (CLI) | payer OTHER, SELFPAY ==
[2019-08-29 03:40] VITALS: BMI 17.6
--- NOTE | 2024-12-23 08:38 | DI.MG.S_ITS ---
BILATERAL DIGITAL SCREENING MAMMOGRAM 3D/2D WITH CAD: 12/23/2024 CLINICAL: Baseline exam. Routine screening. No prior exams were available for comparison. The breasts are heterogeneously dense, which may obscure small masses (category c / 51-75% glandular tissue). Current study was also evaluated with a Computer Aided Detection (CAD) system. There is a possible oval focal asymmetry with an obscured margin in the left breast at 12 o'clock posterior depth. No other significant masses, calcifications, or other findings are seen in either breast. IMPRESSION: INCOMPLETE: NEED ADDITIONAL IMAGING EVALUATION The possible oval focal asymmetry in the left breast is indeterminate. Additional views with possible ultrasound are recommended. Based on the Tyrer Cuzick model (a risk assessment model) the patient's lifetime risk is 7.4% and her 10 year risk is 2.1%. According to the ACR, ACS, and NCCN guidelines, an annual breast MRI exam along with mammogram is recommended if the patient's lifetime risk is 20% or greater. This exam was interpreted at Station ID: [id number]. NOTE: For mammograms, a report in lay terms will be sent to the patient. Approximately 15% of breast malignancies will not be visualized mammographically. In the management of a palpable breast mass, a negative mammogram must not discourage biopsy of a clinically suspicious lesion. Electronically Signed By: Nuno Byrne M.D. at/:12/23/2024 18:36:38 letter sent: Additional Imaging Needed ACR BI-RADS Category 0: Incomplete: Need Additional Imaging Evaluation
== END ==
PROVIDERS: PCP Student in an Organized Health Care Education/Training Program; Referring Provider Obstetrics & Gynecology; Visit Provider Obstetrics & Gynecology
DX: Z12.31 Encounter for screening mammogram for malignant neoplasm of breast (principal); R92.333 Mammographic heterogeneous density, bilateral breasts
CPT/HCPCS: 77063; 77067